=== PATIENT | female | born 1950 | race Caucasian/White ===

== ENCOUNTER → 2018-07-04 08:37 | Outpatient (CLI) | payer MEDICARE, SELFPAY ==
[2018-07-04 10:34] LABS: Thyroid Stimulating Hormone 0.97 uIU/mL (0.47-4.68)
== END ==
PROVIDERS: Family Provider Internal Medicine; PCP Internal Medicine; Visit Provider Nurse Practitioner
DX: C73 Malignant neoplasm of thyroid gland (principal)
CPT/HCPCS: 36415; 84443

== ENCOUNTER → 2018-12-19 11:51 | Outpatient (CLI) | payer MEDICARE, SELFPAY ==
[2018-12-19 13:11] LABS: Free T4, Direct Thyroxine 1.69 ng/dL (0.78-2.19)
[2018-12-19 13:25] LABS: Thyroid Stimulating Hormone 0.08 uIU/mL (0.47-4.68)
[2018-12-20 15:58] LABS: Triiodothyronine T3 Total 107 ng/dL (76-181)
== END ==
PROVIDERS: PCP Internal Medicine; Visit Provider Internal Medicine
DX: E03.9 Hypothyroidism, unspecified (principal)
CPT/HCPCS: 36415; 84439; 84443; 84480

== ENCOUNTER → 2019-02-02 12:15 | Outpatient (CLI) | payer MEDICARE, SELFPAY ==
--- NOTE | 2019-02-02 | DI.MG.S_ITS ---
BILATERAL DIGITAL SCREENING MAMMOGRAM 3D/2D WITH CAD: 02/02/2019 Comparison is made to exams dated: 10/01/2014 mammogram and 05/06/2012 mammogram - [facility]. There are scattered fibroglandular elements in both breasts. Current study was also evaluated with a Computer Aided Detection (CAD) system. No significant masses, calcifications, or other findings are seen in either breast. There has been no significant interval change. IMPRESSION: NEGATIVE There is no mammographic evidence of malignancy. A 1 year screening mammogram is recommended. This exam was interpreted at Station ID: [id number]. NOTE: For mammograms, a report in lay terms will be sent to the patient. Approximately 15% of breast malignancies will not be visualized mammographically. In the management of a palpable breast mass, a negative mammogram must not discourage biopsy of a clinically suspicious lesion. Electronically Signed By: Tanya ortega/che:02/02/2019 16:26:04 letter sent: Normal Exam ACR BI-RADS Category 1: Negative 3341F
== END ==
PROVIDERS: PCP Internal Medicine; Visit Provider Internal Medicine
DX: Z12.31 Encounter for screening mammogram for malignant neoplasm of breast (principal)
CPT/HCPCS: 77063; 77067

== ENCOUNTER → 2019-11-04 09:01 | Outpatient (CLI) | payer MEDICARE, SELFPAY ==
[2019-11-04 11:18] LABS: Free T4, Direct Thyroxine 2.02 ng/dL (0.78-2.19)
[2019-11-04 11:32] LABS: Thyroid Stimulating Hormone 0.19 uIU/mL (0.47-4.68)
[2019-11-05 07:44] LABS: Triiodothyronine T3 Total 129 ng/dL (71-180)
== END ==
PROVIDERS: PCP Internal Medicine; Referring Provider Internal Medicine; Visit Provider Internal Medicine
DX: E03.9 Hypothyroidism, unspecified (principal)
CPT/HCPCS: 36415; 84439; 84443; 84480

== ENCOUNTER 2020-10-17 18:38 | Emergency (ER) | payer MEDICARE, SELFPAY ==
[2020-10-17 18:46] VITALS: BP 185/91; PULSE 91; RESP 20; TEMP 37.4; O2SAT 96
--- NOTE | 2020-10-17 18:49 | ED_ITS ---
HPI - Nausea/Vomiting/Diarrhea General Chief complaint: Nausea/Vomiting/Diarrhea Stated complaint: SPIT UP A BUNCH OF BLOOD RT LEG NUMBNESS Time Seen by Provider: 10/17/20 18:49 Source: patient Mode of arrival: Ambulatory Limitations: no limitations History of Present Illness HPI Narrative: 70-year-old female nonsmoker with history of thyroid and uterine cancer (no ongoing treatment, [facility]) presents with family in the chief complaint of dry and hacking cough over the past few days and the production of some blood-tinged sputum today. She is not dizzy nor weak or lightheaded. She denies any fever or chills. She does not take any blood thinners. She denies any history of blood clot, recent travel. Additionally, patient complains of some pain in her right lower back with extension into her right leg and episodes of tingling. She denies any traumatic injury, use of IV drugs or fever. She has no midline pain. She denies any loss of bowel or bladder control nor any footdrop. Related Data Previous Rx's Medication Instructions Recorded cyclobenzaprine 10 mg PO TID PRN #14 tab 10/17/20 ketorolac 10 mg PO Q6H PRN #14 tab 10/17/20 prednisone 20 mg PO DAILY #5 tab 10/17/20 Review of Systems Constitutional Constitutional: Denies chills, Denies fatigue, Denies fever(s), Denies frequent falls, Denies lethargy and Denies weakness Eyes Eyes: Denies change in vision, Denies eye discharge, Denies irritation and Denies loss of vision ENT Ears, Nose, Mouth, and Throat: Denies change in voice, Denies dizziness, Denies neck pain, Denies sore throat and Denies throat swelling Cardiovascular Cardiovascular: Denies chest pain, Denies irregular heart rhythm, Denies lightheadedness, Denies palpitations, Denies dyspnea, Denies dyspnea on exertion and Denies orthopnea Respiratory Respiratory: Reports cough, Reports hemoptysis, Denies dyspnea, Denies dyspnea on exertion and Denies wheezing Gastrointestinal Gastrointestinal: Denies abdominal pain, Denies change in bowel habits, Denies diarrhea, Denies nausea and Denies vomiting Musculoskeletal Musculoskeletal: Reports back pain, Denies neck pain, Denies numbness and Reports radiating pain into limb Integumentary/Breasts Skin/Breast: Denies pruritus, Denies erythema, Denies rash and Denies wounds Neurologic Neurologic: Denies behavioral changes, Denies confusion, Denies dizziness, Denies frequent falls, Denies loss of vision, Denies numbness and Denies weakness Psychiatric Psychiatric: Denies anxiety, Denies behavioral changes, Denies confusion, Denies depression, Denies homicidal ideation and Denies suicidal ideation Endocrine Endocrine: Denies fatigue, Denies flushing and Denies palpitations Hematologic/Lymphatic Hematologic/Lymphatic: Denies easy bruising Allergic/Immunologic Allergic/Immunologic: Denies urticaria, Denies throat swelling and Denies wheezing Patient History Surgical History History of thyroidectomy Status post dilation and curettage (08/08/15) Status post hysterectomy (09/08/15) Status post surgery (08/08/15) Exam Narrative Exam Narrative: GENERAL: [70] year old patient appears stated age. Well- nourished, well-developed patient, in mild distress. HEAD: Atraumatic. Normocephalic. EYES: Pupils equal round and reactive. Extraocular motions intact. No scleral icterus. No injection or drainage. ENT: Nose without bleeding, purulent drainage. Throat without erythema, tonsillar hypertrophy or exudate. Airway patent. NECK: Trachea midline. Non tender CARDIOVASCULAR: Regular rate and rhythm without murmurs, gallops, or rubs. RESPIRATORY: Clear to auscultation. Breath sounds equal bilaterally. No wheezes, rales, or rhonchi. GASTROINTESTINAL: Abdomen soft, non-tender, nondistended. EXTREMITIES: No edema or joint tenderness. BACK: mason tender restoration labor but free of any obvious external abnormalities. Patient exam notes decreased range of motion and muscle spasm, but no CVA tenderness, or vertebral point tenderness. There are no symptoms of cauda equina such as saddle anesthesia, and decreased reflexes, decreased sensation or strength. NEURO: AOx3. SKIN: No rash or erythema of visible areas Initial Vital Signs Initial Vital Signs: Vital Signs Temperature 99.4 F 10/17/20 18:46 Pulse Rate 91 H 10/17/20 18:46 Respiratory Rate 20 10/17/20 18:46 Blood Pressure 185/91 H 10/17/20 18:46 Pulse Oximetry 96 10/17/20 18:46 Course Orders Ordered: ED Orders 10/17/20 19:00 XR chest 2V Stat 10/17/20 19:30 Complete Blood Count AUTO DIFF Stat Comprehensive Metabolic Panel Stat D Dimer Stat Partial Thromboplastin Time Stat Procalcitonin Stat Prothrombin Time INR Stat Troponin & CK Cardiac Panel Stat 10/17/20 20:11 CT angio chest PE protocol Stat Discontinued Medications Cyclobenzaprine HCl (Cyclobenzaprine 10 Mg Prepack) 1 bottle MISC SEEINSTR ONE Stop: 10/17/20 21:14 Last Admin: 10/17/20 21:22 Dose: 1 bottle Documented by: MINA Prednisone (Prednisone 20 Mg Tablet) 40 mg PO NOW ONE Stop: 10/17/20 21:14 Last Admin: 10/17/20 21:22 Dose: 40 mg Documented by: MINA Vital Signs Vital signs: Vital Signs - 8 hr 10/17/20 20:53 Pulse Rate 68 Respiratory Rate 16 Blood Pressure 168/76 H Pulse Oximetry 97 MDM - Nausea/Vomiting/Diarrhea Lab Data Result diagrams: 10/17/20 19:30 10/17/20 19:30 Labs: Lab Results 10/17/20 10/17/20 10/17/20 Range/Units 19:30 19:30 19:30 WBC 5.8 (4.5-11.0) X10^3/uL RBC 4.52 (4.0-5.2) X10^6/uL Hgb 13.0 (12.0-16.0) g/dL Hct 38.8 (36-46) % MCV 85.7 (80-100) fL MCH 28.8 (26-34) PG MCHC 33.6 (30-36) % RDW 13.3 (11.6-14.8) % Plt Count 244 (150-400) X10^3/uL Neut % (Auto) 52.9 (50-75) % Lymph % (Auto) 36.3 (25-40) % York % (Auto) 7.7 (3-14) % Eos % (Auto) 2.1 (2-4) % Baso % (Auto) 1.0 (0-2) % Neut # (Auto) 3100 (4347-8655) /uL Lymph # (Auto) 2100 (7366-4223) /uL York # (Auto) 400 (0-900) /uL Eos # (Auto) 100 (0-450) /uL Baso # (Auto) 100 (0-100) /uL PT 12.2 (10.1-12.7) SECONDS INR 1.1 (0.9-1.3) APTT 33 (26.4-36.2) SECONDS D-Dimer (<230) ng/mL Sodium 142 (137-145) mmol/L Potassium 4.0 (3.4-5.1) mmol/L Chloride 106 (98-107) mmol/L Carbon Dioxide 27 (22-32) mmol/L BUN 18 H (7-17) mg/dL Creatinine 0.92 (0.52-1.04) mg/dL Estimated GFR > 60.0 (>60) mL/min BUN/Creatinine Ratio 19.6 (6-22) Glucose 104 (80-110) mg/dL Calcium 8.8 (8.4-10.2) mg/dL Total Bilirubin 0.3 (0.2-1.3) mg/dL AST 31 (14-36) IU/L ALT 31 (<35) IU/L Alkaline Phosphatase 80 (38-126) U/L Total Creatine Kinase 452 H (30-135) U/L CK-MB (CK-2) 3.00 H (<2.37) ng/mL CK-MB (CK-2) Rel Index 0.7 L (1.5-5.0) % Troponin I < 0.012 (0.01-0.034) ng/mL Total Protein 8.1 (6.3-8.2) g/dL Albumin 4.6 (3.5-5.0) g/dL Globulin 3.5 (1.7-4.1) g/dL Albumin/Globulin Ratio 1.3 (1.0-2.8) Procalcitonin (<0.5) ng/mL 10/17/20 10/17/20 Range/Units 19:30 19:30 WBC (4.5-11.0) X10^3/uL RBC (4.0-5.2) X10^6/uL Hgb (12.0-16.0) g/dL Hct (36-46) % MCV (80-100) fL MCH (26-34) PG MCHC (30-36) % RDW (11.6-14.8) % Plt Count (150-400) X10^3/uL Neut % (Auto) (50-75) % Lymph % (Auto) (25-40) % York % (Auto) (3-14) % Eos % (Auto) (2-4) % Baso % (Auto) (0-2) % Neut # (Auto) (3486-9326) /uL Lymph # (Auto) (6855-7412) /uL York # (Auto) (0-900) /uL Eos # (Auto) (0-450) /uL Baso # (Auto) (0-100) /uL PT (10.1-12.7) SECONDS INR (0.9-1.3) APTT (26.4-36.2) SECONDS D-Dimer 647 H (<230) ng/mL Sodium (137-145) mmol/L Potassium (3.4-5.1) mmol/L Chloride (98-107) mmol/L Carbon Dioxide (22-32) mmol/L BUN (7-17) mg/dL Creatinine (0.52-1.04) mg/dL Estimated GFR (>60) mL/min BUN/Creatinine Ratio (6-22) Glucose (80-110) mg/dL Calcium (8.4-10.2) mg/dL Total Bilirubin (0.2-1.3) mg/dL AST (14-36) IU/L ALT (<35) IU/L Alkaline Phosphatase (38-126) U/L Total Creatine Kinase (30-135) U/L CK-MB (CK-2) (<2.37) ng/mL CK-MB (CK-2) Rel Index (1.5-5.0) % Troponin I (0.01-0.034) ng/mL Total Protein (6.3-8.2) g/dL Albumin (3.5-5.0) g/dL Globulin (1.7-4.1) g/dL Albumin/Globulin Ratio (1.0-2.8) Procalcitonin 0.05 (<0.5) ng/mL Imaging Data CT scan - chest: Radiologist's Impression: [address] [id number] Scan ReportSigned Patient: Saranya Fleming [facility]#: [id number]: 1950cct:[id number]/Sex: 70 / FDate of Service: 10/17/20Loc: EDAccession Number: [id number] Procedure: CT angio chest PE protocol Ordering Provider: Magan Miller D.O. PROCEDURE: CT ANGIO CHEST PE PROTOCOL INDICATIONS: cough, hemoptysis TECHNIQUE: After the administration of intravenous contrast, 2 mm thick sections acquired from the pulmonary apices to the posterior costophrenic angles. 3-dimensional maximum intensity projection (MIP) coronal and sagittal reformats were then acquired through the thorax. For radiation dose reduction, the following was used: automated exposure control, adjustment of mA and/or kV according to patient size. COMPARISON: None. FINDINGS: Image quality: Excellent. Pulmonary arteries: Pulmonary arteries are normal in size, and demonstrate no intraluminal filling defects to suggest central pulmonary embolism. Lungs and pleura: No evidence pneumonia or edema. There are multiple bilateral basilar predominant pulmonary nodules, largest of which is in the right middle lobe anteriorly measuring 10 mm diameter. No pleural effusions or pneumothorax. Central and peripheral airways are patent. Mediastinum: Heart size is normal, without pericardial effusion. 17 mm short axis left adenopathy is present. Thoracic aorta is normal in caliber and enhancement. Esophagus is normal in caliber, without hiatal hernia. Bones and chest wall: No suspicious bony lesions. Ribs and thoracic spine appear intact throughout. Thyroid gland is surgically absent. No axillary or supraclavicular adenopathy. Abdomen: Visualized portions of the upper abdomen demonstrate an 18 mm diameter right adrenal nodule which demonstrates postcontrast Hounsfield units 20. IMPRESSION: 1. No pulmonary embolus. 2. Multiple bilateral pulmonary nodules, in conjunction with left hilar adenopathy, consistent with metastatic disease. 3. Indeterminate right adrenal nodule. This could be further assessed with adrenal protocol MRI, if clinically indicated. Dictated by: Hiro Cee M.D. on 10/17/2020 at 21:00 Approved by: Hiro Cee M.D. on 10/17/2020 at 21:02 MDM Narrative Medical decision making narrative: Multiple etiologies for patient's symptoms considered including: [Pneumonia versus pulmonary embolism versus lung cancer versus other. Multiple etiologies of back pain considered including; Epidural abscess, cauda equina, mass occupying lesion, and other considered] Patient's symptoms improved over duration of stay with above-stated therapies. Findings and discharge diagnosis discussed with patient/family followed by verbalization of understanding Return precautions discussed with patient/family whom verbalize understanding. Discharge Plan Departure Patient Disposition: Home Clinical Impression: Lumbar radiculopathy, right Instructions: DI for Lumbar Radiculopathy Activity Restrictions/Additional Instructions: *You have been diagnosed with [right-sided lumbar radiculopathy and minor cough with bloody sputum. Labs are very reassuring and there is no evidence of pneumonia or blood clot. Multiple pulmonary nodules were noted, which could be consistent with possible lung cancer. *What to do: *Take medications as directed *Follow up with your primary care provider in 2-3 days, call for an appointment. Let them know you were seen in the Emergency Department and that we ask that you be seen in follow up. They can help you get a referral to the [facility] for a futher workup to evaluate those nodules. *Return to ER if you should have any new, worsening or concerning symptoms Prescriptions: New cyclobenzaprine 10 mg tablet 10 mg PO TID PRN (Reason: muscle spasm) Qty: 14 RF: 0 prednisone 20 mg tablet 20 mg PO DAILY Qty: 5 RF: 0 ketorolac 10 mg tablet 10 mg PO Q6H PRN (Reason: pain) Qty: 14 RF: 0 Referrals: Sandor Fontenot MD [Primary Care Provider] -
--- NOTE | 2020-10-17 19:00 | DI.RAD.S_ITS ---
PROCEDURE: XR CHEST 2V INDICATIONS: cough, hemoptysis TECHNIQUE: 2 views of the chest were acquired. COMPARISON: None. FINDINGS: Surgical changes and devices: None. Lungs and pleura: Lungs are clear. No pleural effusions or pneumothorax. Mediastinum: Mediastinal contours are normal. Heart size is normal. Bones and chest wall: No suspicious bony abnormalities. Soft tissues appear unremarkable. IMPRESSION: No acute process. Dictated by: Hiro Cee M.D. on 10/17/2020 at 19:16 Approved by: Hiro Cee M.D. on 10/17/2020 at 19:17
[2020-10-17 19:37] LABS: Add Manual Diff / Slide Review NO; Basophils Absolute Auto 100 /uL (0-100); Eosinophils Absolute Auto 100 /uL (0-450); Eosinophils Percent Auto 2.1 % (2-4); Hematocrit 38.8 % (36-46); Lymphocytes Absolute Auto 2100 /uL (1100-4500); Lymphocytes Percent Auto 36.3 % (25-40); Mean Corpuscular HGB Conc 33.6 % (30-36); Mean Corpuscular Hemoglobin 28.8 PG (26-34); Mean Corpuscular Volume 85.7 fL (80-100); Monocytes Absolute Auto 400 /uL (0-900); Monocytes Percent Auto 7.7 % (3-14); Neutrophils Absolute Auto 3100 /uL (1500-7000); Neutrophils Percent Auto 52.9 % (50-75); Platelet Count 244 X10^3/uL (150-400); Red Blood Cell Count 4.52 X10^6/uL (4.0-5.2); Red Cell Distribution Width 13.3 % (11.6-14.8); White Blood Cell Count 5.8 X10^3/uL (4.5-11.0)
[2020-10-17 19:48] LABS: INR 1.1 (0.9-1.3); Prothrombin Time 12.2 SECONDS (10.1-12.7)
[2020-10-17 19:51] LABS: PTT Partial Thromboplastin Tim 33 SECONDS (26.4-36.2)
[2020-10-17 20:02] LABS: D Dimer 647 ng/mL (<230)
--- NOTE | 2020-10-17 20:11 | DI.CT.S_ITS ---
PROCEDURE: CT ANGIO CHEST PE PROTOCOL INDICATIONS: cough, hemoptysis TECHNIQUE: After the administration of intravenous contrast, 2 mm thick sections acquired from the pulmonary apices to the posterior costophrenic angles. 3-dimensional maximum intensity projection (MIP) coronal and sagittal reformats were then acquired through the thorax. For radiation dose reduction, the following was used: automated exposure control, adjustment of mA and/or kV according to patient size. COMPARISON: None. FINDINGS: Image quality: Excellent. Pulmonary arteries: Pulmonary arteries are normal in size, and demonstrate no intraluminal filling defects to suggest central pulmonary embolism. Lungs and pleura: No evidence pneumonia or edema. There are multiple bilateral basilar predominant pulmonary nodules, largest of which is in the right middle lobe anteriorly measuring 10 mm diameter. No pleural effusions or pneumothorax. Central and peripheral airways are patent. Mediastinum: Heart size is normal, without pericardial effusion. 17 mm short axis left adenopathy is present. Thoracic aorta is normal in caliber and enhancement. Esophagus is normal in caliber, without hiatal hernia. Bones and chest wall: No suspicious bony lesions. Ribs and thoracic spine appear intact throughout. Thyroid gland is surgically absent. No axillary or supraclavicular adenopathy. Abdomen: Visualized portions of the upper abdomen demonstrate an 18 mm diameter right adrenal nodule which demonstrates postcontrast Hounsfield units 20. IMPRESSION: 1. No pulmonary embolus. 2. Multiple bilateral pulmonary nodules, in conjunction with left hilar adenopathy, consistent with metastatic disease. 3. Indeterminate right adrenal nodule. This could be further assessed with adrenal protocol MRI, if clinically indicated. Dictated by: Hiro Cee M.D. on 10/17/2020 at 21:00 Approved by: Hiro Cee M.D. on 10/17/2020 at 21:02
[2020-10-17 20:32] LABS: Alanine Aminotransferase 31 IU/L (<35); Albumin 4.6 g/dL (3.5-5.0); Albumin Globulin Ratio 1.3 (1.0-2.8); Alkaline Phosphatase 80 U/L (38-126); Aspartate Aminotransferase 31 IU/L (14-36); BUN Creatinine Ratio 19.6 (6-22); Bilirubin Total 0.3 mg/dL (0.2-1.3); Blood Urea Nitrogen 18 mg/dL (7-17); Calcium 8.8 mg/dL (8.4-10.2); Carbon Dioxide 27 mmol/L (22-32); Chloride 106 mmol/L (98-107); Creatine Kinase 452 U/L (30-135); Estimated Glomerular Filt Rate > 60.0 mL/min (>60); Globulin 3.5 g/dL (1.7-4.1); Glucose 104 mg/dL (80-110); HEMOLYSIS < 15 (0-50); Sodium 142 mmol/L (137-145); Total Protein 8.1 g/dL (6.3-8.2)
[2020-10-17 20:45] LABS: Troponin I < 0.012 ng/mL (0.01-0.034)
[2020-10-17 20:48] LABS: CKMB % Relative Index 0.7 % (1.5-5.0)
[2020-10-17 20:50] LABS: Procalcitonin 0.05 ng/mL (<0.5)
[2020-10-17 20:53] VITALS: BP 168/76; PULSE 68; RESP 16; O2SAT 97
[2020-10-17] MEDS: predniSONE 20 MG TABLET 40 MG PO (21:22)
[2020-10-17] MEDS: CYCLOBENZAPRINE 10 MG PREPACK 1 BOTTLE MISC (21:22)
== END 2020-10-17 21:33 | disposition home or self-care (01) ==
PROVIDERS: Emergency Provider Emergency Medicine; PCP Internal Medicine
DX: M54.16 Radiculopathy, lumbar region (principal); R04.2 Hemoptysis
CPT/HCPCS: 36415; 71046; 71275; 80053; 82550; 82553; 84145; 84484; 85025; 85379; 85610; 85730; 99284

== ENCOUNTER → 2020-12-05 14:16 | Outpatient (CLI) | payer MEDICARE, SELFPAY ==
[2020-12-05 15:24] LABS: COVID19 -Nasal RAPID Negative (Negative)
== END ==
PROVIDERS: PCP Internal Medicine; Visit Provider Physician Assistant
DX: Z01.812 Encounter for preprocedural laboratory examination (principal); Z20.822 Contact with and (suspected) exposure to COVID-19
CPT/HCPCS: 87635; C9803

== ENCOUNTER 2020-12-07 08:10 | Day surgery (SDC) | payer MEDICARE, SELFPAY ==
--- NOTE | 2020-12-07 | PATH_ITS ---
[facility] Accession Number: [id number] . 01 Material submitted: . PART A: colon - ASCENDING COLON POLYP PART B: colon - ASCENDING COLON POLYP 20MM . 02 Diagnosis: A. Ascending Colon Polyp, Biopsy: Tubular adenoma. . B. Ascending Colon Polyp, 20 mm, Biopsy: Fragments of tubulovillous adenoma with foci of high-grade dysplasia. Negative for malignancy. MRV 12/12/2020 1113 Local . 02 Electronically signed: . Antonio Henson MD, PhD, Pathologist NPI- [id number] . 01 Gross description: . Part A: ASCENDING COLON POLYP: Received in formalin are 2 fragment(s) of garcia, soft tissue measuring 0.4 x 0.2 x 0.2 cm to 0.2 x 0.2 x 0.1 cm submitted entirely in 1 cassette(s) Part B: ASCENDING COLON POLYP 20MM: Received in formalin are multiple fragment(s) of garcia, soft tissue measuring 3.3 x .0 x 1.0 cm in aggregate submitted entirely in 1 cassette(s) /[place] 12/08/2020 0912 Local . 02 Pathologist provided ICD-10: D12.2 . 02 CPT . 965099, [id number] Performed at: 01 [facility] [address], [place], [place] [id number] MD Jorge Garcia MD Phone: [phone] Performed at: 02 [facility] [address] [place], [place] [id number] MD Prachi Freitas MD Phone: [phone]
[2020-12-07 08:34] VITALS: BP 132/76; PULSE 89; RESP 18; TEMP 37.2; O2SAT 97; BMI 33.5
[2020-12-07] MEDS: SODIUM CHLORIDE 0.9% 1,000 ML 84 ML IV (08:40)
--- NOTE | 2020-12-07 09:18 | PM.HP.1 ---
History of Present Illness History of Present Illness Date Patient Seen: 12/07/20 Chief complaint: SCREENING COLONOSCOPY W/POSS BX Narrative: Positive Cologuard test with family history of polyps in her brother. Patient History Medical History (Updated 12/06/20 @ 14:37 by Margoth Fontenot RN) Thyroid cancer Uterine cancer Surgical History History of thyroidectomy Status post dilation and curettage (08/08/15) Status post hysterectomy (09/08/15) Status post surgery (08/08/15) Family & Social History Social History: household members none Tobacco & Substance use: Smoking Status Never smoker alcohol intake never Substance Use Type does not use Meds Home Medications and Allergies Home Medications Medication Instructions Recorded Confirmed Type aspirin 81 mg PO DAILY 12/07/20 12/07/20 History calcitriol 0.25 mcg PO DAILY 12/07/20 12/07/20 History levothyroxine 175 mcg PO DAILY 12/07/20 12/07/20 History losartan 100 mg PO DAILY 12/07/20 12/07/20 History Allergies Allergy/AdvReac Type Severity Reaction Status Date / Time No Known Drug Allergies Allergy Verified 12/07/20 08:43 Exam Vital Signs (past 8 hours): - 12/07/20 08:34 Temperature 98.9 F Pulse Rate 89 Respiratory Rate 18 Blood Pressure 132/76 Pulse Oximetry 97 Oxygen Delivery Method Room Air Narrative Exam Narrative: Oropharynx free of lesions Chest clear to auscultation percussion Cardiac exam reveals no S3 or murmur Assessment & Plan Assessment & Plan narrative: Positive Cologuard test and family history of colon polyps need for screening colonoscopy. Risks, benefits, alternatives have been explained.
--- NOTE | 2020-12-07 09:19 | P.OP.ENDO_ITS ---
Operative Date/Time/Diagnoses Date of procedure: 12/07/20 Pre-op diagnosis: See indication and findings Procedure & Clinicians Study performed: Colonoscopy Same procedure as scheduled: Yes Indications: Positive Cologuard and family history of colon polyps in a first- degree relative Surgeon: Edy Levi Procedure Notes Procedure in detail: After informed consent was obtained the patient was placed in left lateral decubitus position. The video colonoscope was introduced the rectum slowly advanced cecum. Preparation was good. On slow withdrawal mucosa was carefully examined. The scope was removed. The patient tolerated procedure well. Blood loss none Complications none Sedation Total sedation time 55 minutes Versed 9 mg fentanyl 150 micro g IV titration Findings 1. 6 mm polyp in the proximal ascending colon Jumbo biopsy removed completely 2. Gigantic semi pedunculated 20 mm polyp in the distal ascending colon. The base of the stalk was injected 2 cc of epinephrine and using a large snare this was removed in 1 pass. Unfortunately, this was unable to be removed through in the left colon due to tortuosity. A good deal of time was spent trying to snare it or use a [place] Net. Eventually after several cuts through the polyp using electric cautery fragments were retrieved. It is possible that not all fragments were retrieved. 3. Extensive sigmoid diverticulosis 4. Otherwise negative colonoscopy to cecum. We will merely await the pathology on this polyp but she will most likely need follow-up colonoscopy within a year.
[2020-12-07] MEDS: EPINEPHrine 1 MG/10 ML SYRINGE IV (09:45)
[2020-12-07] MEDS: MIDAZOLAM 5 MG/5 ML VIAL IV (10:04)
[2020-12-07] MEDS: fentaNYL 250 MCG/5 ML INJ IV (10:07)
[2020-12-07 10:28] VITALS: BP 125/74; PULSE 70; RESP 18; TEMP 36.3; O2SAT 98
--- NOTE | 2020-12-07 10:28 | SUR.PHASEI ---
Pt arrived to PACU after colonoscopy with sedation. Reekylee from [facility].
[2020-12-07 10:33] VITALS: BP 124/64; PULSE 69; RESP 20; O2SAT 97
[2020-12-07 10:38] VITALS: BP 118/74; PULSE 78; RESP 20
[2020-12-07 10:45] VITALS: BP 129/79; PULSE 72; RESP 16; TEMP 36.4; O2SAT 95
[2020-12-07 11:02] VITALS: BP 123/65; PULSE 79; RESP 16; TEMP 36.2; O2SAT 97
== END 2020-12-07 11:04 | disposition home or self-care (01) ==
PROVIDERS: PCP Physician Assistant; Referring Provider Physician Assistant; Visit Provider Internal Medicine Gastroenterology
PROC: 0DJD8ZZ Inspection of Lower Intestinal Tract, Via Natural or Artificial Opening Endoscopic (ICD-10-PCS; CPT 45378; principal; 2020-12-07 09:30)
DX: R19.5 Other fecal abnormalities (principal); K57.30 Diverticulosis of large intestine without perforation or abscess without bleeding; D12.2 Benign neoplasm of ascending colon
CPT/HCPCS: 45385; 45380; J0171; J2250; J3010

== ENCOUNTER 2020-12-15 15:25 | Emergency (ER) | payer MEDICARE, SELFPAY ==
[2020-12-15] VITALS (9 sets, daily range): BP systolic 120–142; BP diastolic 62–74; PULSE 77–98; RESP 15; TEMP 37.1; O2SAT 96–98; BMI 33.6
[2020-12-15 16:16] LABS: Alanine Aminotransferase 25 IU/L (<35); Albumin 4.4 g/dL (3.5-5.0); Albumin Globulin Ratio 1.3 (1.0-2.8); Alkaline Phosphatase 63 U/L (38-126); Aspartate Aminotransferase 26 IU/L (14-36); BUN Creatinine Ratio 27.3 (6-22); Bilirubin Total 0.3 mg/dL (0.2-1.3); Blood Urea Nitrogen 24 mg/dL (7-17); Calcium 9.2 mg/dL (8.4-10.2); Carbon Dioxide 25 mmol/L (22-32); Chloride 104 mmol/L (98-107); Estimated Glomerular Filt Rate > 60.0 mL/min (>60); Globulin 3.4 g/dL (1.7-4.1); Glucose 103 mg/dL (80-110); HEMOLYSIS < 15 (0-50); Potassium 4.1 mmol/L (3.4-5.1); Sodium 138 mmol/L (137-145); Total Protein 7.8 g/dL (6.3-8.2)
[2020-12-15 16:27] LABS: Add Manual Diff / Slide Review NO; Basophils Absolute Auto 0 /uL (0-100); Basophils Percent Auto 0.4 % (0-2); Eosinophils Absolute Auto 0 /uL (0-450); Eosinophils Percent Auto 0.7 % (2-4); Hemoglobin 12.1 g/dL (12.0-16.0); Lymphocytes Absolute Auto 2000 /uL (1100-4500); Lymphocytes Percent Auto 29.2 % (25-40); Mean Corpuscular HGB Conc 33.5 % (30-36); Mean Corpuscular Hemoglobin 28.8 PG (26-34); Mean Corpuscular Volume 85.9 fL (80-100); Monocytes Absolute Auto 500 /uL (0-900); Monocytes Percent Auto 6.7 % (3-14); Neutrophils Absolute Auto 4300 /uL (1500-7000); Platelet Count 254 X10^3/uL (150-400); Red Blood Cell Count 4.19 X10^6/uL (4.0-5.2); Red Cell Distribution Width 13.3 % (11.6-14.8); White Blood Cell Count 6.8 X10^3/uL (4.5-11.0)
--- NOTE | 2020-12-15 16:42 | ED.GIBLEED ---
HPI - GI Bleed General Chief complaint: GI Bleed Stated complaint: Colonoscopy Last Week, Bleeding Time Seen by Provider: 12/15/20 16:42 Source: patient Mode of arrival: Ambulatory Limitations: no limitations History of Present Illness HPI Narrative: This is a pleasant 70-year-old female who comes with complaint of painless rectal bleeding that began yesterday. Patient states she noticed more yesterday and less today but with each bowel movement. She denies any fevers or chills. She denies any abdominal pain. She denies any nausea or vomiting. She denies any chest pain or shortness of breath. No dizziness or lightheadedness. She denies any urinary symptoms. Patient states that she did have a colonoscopy a week ago for screening. She was told that she did have at least 2 polyps removed. Patient states she does have a history of thyroid cancer with thyroidectomy and part of her parathyroids removed, she takes medication for her thyroid as well as calcium and a antihypertensive. Patient states she has also had hysterectomy for uterine cancer in the past. Patient states her colonoscopy was performed here through Gastroenterology she has not had the final reports. Related Data Home Medications Medication Instructions Recorded Confirmed aspirin 81 mg PO DAILY 12/07/20 12/07/20 calcitriol 0.25 mcg PO DAILY 12/07/20 12/07/20 levothyroxine 175 mcg PO DAILY 12/07/20 12/07/20 losartan 100 mg PO DAILY 12/07/20 12/07/20 Allergies Allergy/AdvReac Type Severity Reaction Status Date / Time No Known Drug Allergies Allergy Verified 12/15/20 15:38 Review of Systems Review of Systems ROS Unobtainable: All systems reviewed & are unremarkable except as noted in HPI and below Patient History Medical History Thyroid cancer Uterine cancer Surgical History History of thyroidectomy Status post dilation and curettage (08/08/15) Status post hysterectomy (09/08/15) Status post surgery (08/08/15) Social History household members: none Smoking Status: Never smoker alcohol intake: never Smoking Status: Never smoker alcohol intake frequency: holidays/special occasions only Substance Use Type: does not use Exam Narrative Exam Narrative: GENERAL: Alert and oriented x three, well-nourished female in mild distress. HEENT: Head normocephalic, atraumatic, EOMI, pupils reactive, face symmetric, moist mucous membranes NECK: Supple, full range of motion CARDIOVASCULAR: Regular rate and rhythm without murmurs, rubs or gallops. RESPIRATORY: Breath sounds equal bilaterally, no wheezes rales or rhonchi. ABDOMEN: Soft, nontender. Normoactive bowel sounds all 4 quadrants. No guarding or rebound, rigidity, no mass, patient has a small hemorrhoid on exam, there is a small amount of bright red blood mixed in with brown stool which is stool occult positive. : No CVA tenderness EXTREMITIES: Normal range of motion, no clubbing or edema. Neurovascularly intact NEUROLOGICAL: Cranial nerves II through XII grossly intact. Moving all extremities SKIN: Warm, dry, no petechiae, no rashes or lesions. Initial Vital Signs Initial Vital Signs: Vital Signs Temperature 98.7 F 12/15/20 15:35 Pulse Rate 98 H 12/15/20 15:35 Respiratory Rate 15 12/15/20 15:35 Blood Pressure 128/74 12/15/20 15:35 Pulse Oximetry 97 12/15/20 15:35 Course Orders Ordered: ED Orders 12/15/20 15:48 Complete Blood Count AUTO DIFF Stat Comprehensive Metabolic Panel Stat Type and Screen Stat 12/15/20 16:51 XR acute abdomen series Stat Reevaluation(s) Reevaluation #1: Patient and I discussed findings today. She has not had any additional episodes here in the department. Patient has been feeling well her hemoglobin is stable with negative orthostatics and normal vitals. Discussed with patient likely has bleeding from her polypectomy. Time: 18:19 Consultations Consultation #1: Dr. rAcher from Gastroenterology covering for patient's GI. Suspects patient was having bleeding colon polyp which I agree. Plan to have her hold her aspirin 81 mg, and follow-up tomorrow via phone. The office will reach out to the patient. If patient continues to have bleeding but is asymptomatic will likely take her back for colonoscopy as outpatient. If she is continued to have bleeding but feeling worse patient is to return here and we will recontact GI. Time: 17:10 Vital Signs Vital signs: Vital Signs - 8 hr 12/15/20 15:35 12/15/20 16:36 12/15/20 16:55 Temperature 98.7 F Pulse Rate 98 H 86 80 Pulse Rate [Orthostatic Lying] Pulse Rate [Orthostatic Sitting] Pulse Rate [Orthostatic Standing] Respiratory Rate 15 Blood Pressure 128/74 140/65 Blood Pressure [Orthostatic Lying] Blood Pressure [Orthostatic Sitting] Blood Pressure [Orthostatic Standing] Pulse Oximetry 97 97 98 12/15/20 16:56 12/15/20 16:57 12/15/20 16:58 Temperature Pulse Rate 83 89 Pulse Rate [Orthostatic Lying] 79 Pulse Rate [Orthostatic Sitting] 81 Pulse Rate [Orthostatic Standing] 88 Respiratory Rate Blood Pressure 120/62 135/73 Blood Pressure [Orthostatic Lying] 140/65 Blood Pressure [Orthostatic Sitting] 120/62 Blood Pressure [Orthostatic Standing] 135/73 Pulse Oximetry 97 98 12/15/20 17:00 12/15/20 17:30 12/15/20 18:00 Temperature Pulse Rate 79 77 77 Pulse Rate [Orthostatic Lying] Pulse Rate [Orthostatic Sitting] Pulse Rate [Orthostatic Standing] Respiratory Rate Blood Pressure 131/63 129/65 142/67 H Blood Pressure [Orthostatic Lying] Blood Pressure [Orthostatic Sitting] Blood Pressure [Orthostatic Standing] Pulse Oximetry 97 96 96 MDM - GI Bleed Lab Data Attestation: I reviewed the patient's lab results. Result diagrams: 12/15/20 15:48 12/15/20 15:48 Labs: Lab Results 12/15/20 12/15/20 12/15/20 Range/Units 15:48 15:48 15:48 WBC 6.8 (4.5-11.0) X10^3/uL RBC 4.19 (4.0-5.2) X10^6/uL Hgb 12.1 (12.0-16.0) g/dL Hct 36.0 (36-46) % MCV 85.9 (80-100) fL MCH 28.8 (26-34) PG MCHC 33.5 (30-36) % RDW 13.3 (11.6-14.8) % Plt Count 254 (150-400) X10^3/uL Neut % (Auto) 63.0 (50-75) % Lymph % (Auto) 29.2 (25-40) % [place] % (Auto) 6.7 (3-14) % Eos % (Auto) 0.7 L (2-4) % Baso % (Auto) 0.4 (0-2) % Neut # (Auto) 4300 (2743-9338) /uL Lymph # (Auto) 2000 (8256-8154) /uL [place] # (Auto) 500 (0-900) /uL Eos # (Auto) 0 (0-450) /uL Baso # (Auto) 0 (0-100) /uL Sodium 138 (137-145) mmol/L Potassium 4.1 (3.4-5.1) mmol/L Chloride 104 (98-107) mmol/L Carbon Dioxide 25 (22-32) mmol/L BUN 24 H (7-17) mg/dL Creatinine 0.88 (0.52-1.04) mg/dL Estimated GFR > 60.0 (>60) mL/min BUN/Creatinine Ratio 27.3 H (6-22) Glucose 103 (80-110) mg/dL Calcium 9.2 (8.4-10.2) mg/dL Total Bilirubin 0.3 (0.2-1.3) mg/dL AST 26 (14-36) IU/L ALT 25 (<35) IU/L Alkaline Phosphatase 63 (38-126) U/L Total Protein 7.8 (6.3-8.2) g/dL Albumin 4.4 (3.5-5.0) g/dL Globulin 3.4 (1.7-4.1) g/dL Albumin/Globulin Ratio 1.3 (1.0-2.8) Blood Type O Positive Antibody Screen Negative [facility] Narrative Medical decision making narrative: This is a 70-year-old female comes in with painless rectal bleeding approximately a week after colonoscopy. Patient noted she did have 2 polyps removed. After review of patient's chart it was noted that she had a 6 mm proximal ascending colon biopsy removed as well as a gigantic semi pedunculated 20 mm polyp in the distal ascending colon, the stalk was injected and was removed in 1 pass, they do note that they were unable to remove it through the colon due to tortuosity and had to cut the polyp in the several ports with electrocautery and removed some of the fragments but not all. Patient's hemoglobin is stable in comparison to prior from 10/17/2020 with a BUN of 24. No other lab changes appreciated. Orthostatics are negative in department. Patient I discussed in CT imaging but she like to defer secondary to radiation exposure. She is having painless rectal bleeding plan for abdominal x-ray to evaluate for free air. This was negative. Discharge Plan Departure Patient Disposition: Home Clinical Impression: Painless rectal bleeding, S/P colonoscopic polypectomy Instructions: DI for Rectal Bleeding Activity Restrictions/Additional Instructions: Follow up with your community engagement coordinator in the next several days. I spoke with Dr. Archer for your community engagement coordinator and they are going to contact you tomorrow for close follow-up. He continued to have bleeding today may take you for repeat colonoscopy I would recommend holding your aspirin for the next week. Your labs do not show any major changes to your hemoglobin today. Please return for fevers greater 100.4 F, new abdominal pain, persistent vomiting, increasing frequency of bright red bleeding with bowel movements or melena, lightheadedness or dizziness, new chest pain or shortness of breath or other new or concerning symptoms. Prescriptions: No Action levothyroxine 175 mcg tablet 175 mcg PO DAILY RF: 0 losartan 100 mg tablet 100 mg PO DAILY RF: 0 aspirin 81 mg Tablet 81 mg PO DAILY RF: 0 calcitriol 0.25 mcg capsule 0.25 mcg PO DAILY RF: 0 Referrals: Hilda Denise PA-C [Primary Care Provider] - Edy Levi MD [Physician] -
--- NOTE | 2020-12-15 16:51 | DI.RAD.S_ITS ---
PROCEDURE: XR ACUTE ABDOMEN SERIES INDICATIONS: colonoscopy last week, rectal bleeding. TECHNIQUE: One view chest and two views of the abdomen were acquired. COMPARISON: [facility], CR, XR CHEST 2V, 10/17/2020, 19:04. [facility], CT, CT ANGIO CHEST PE PROTOCOL, 10/17/2020, 20:38. FINDINGS: Surgical changes and devices: None. Chest: Lungs are clear. Heart size is normal. No pleural effusions. No pneumoperitoneum. Abdomen: Bowel gas pattern is normal. There is a moderate amount of stool seen within the colon. No suspicious calcifications. Visualized solid organ contours appear normal. Bones: No suspicious bony lesions. IMPRESSION: No free air can be seen on these plain films. There is a moderate amount of stool seen within the colon. Please correlate with an underlying history of constipation. If it would be helpful for clinical management decision making, please consider a dedicated CT of the abdomen and pelvis with at least IV contrast. Dictated by: Billy Pierre M.D. on 12/15/2020 at 16:45 Approved by: Billy Pierre M.D. on 12/15/2020 at 16:46
== END 2020-12-15 18:18 | disposition home or self-care (01) ==
PROVIDERS: Emergency Medicine; Emergency Provider Emergency Medicine; PCP Physician Assistant
DX: K62.5 Hemorrhage of anus and rectum (principal); Z98.890 Other specified postprocedural states
CPT/HCPCS: 36415; 74022; 80053; 85025; 86850; 86900; 86901; 99281; 99284

== ENCOUNTER 2021-02-03 22:45 | Emergency (ER) | payer MEDICARE, SELFPAY ==
[2021-02-03 22:59] VITALS: PULSE 78; RESP 27; O2SAT 98
[2021-02-03 23:00] VITALS: BP 153/74; PULSE 79; RESP 28; O2SAT 97
--- NOTE | 2021-02-03 23:03 | DI.RAD.S_ITS ---
PROCEDURE: XR CHEST 1V INDICATIONS: Right-sided chest pain TECHNIQUE: One view of the chest was acquired. COMPARISON: [facility], CT, CT ANGIO CHEST PE PROTOCOL, 10/17/2020, 20:38. [facility], CR, XR CHEST 2V, 10/17/2020, 19:04. FINDINGS: Surgical changes and devices: Lower neck clips are seen. Lungs and pleura: An incomplete inspiratory result is noted, causing a crowded appearance to the lung markings. No focal infiltrates are seen. No pneumothorax or significant pleural effusions are seen. Mediastinum: The cardiac contours are within normal limits. The aorta demonstrates calcification and tortuosity. Bones and chest wall: Age-appropriate bony degenerative changes are seen. No suspicious bony lesions. Overlying soft tissues appear unremarkable. IMPRESSION: Limited portable chest study, without an acute abnormality seen. Low lung volumes noted. Postoperative and degenerative changes are seen. Dictated by: Billy Pierre M.D. on 02/04/2021 at 7:23 Approved by: Billy Pierre M.D. on 02/04/2021 at 7:25
[2021-02-03 23:04] VITALS: BP 163/103; PULSE 95; RESP 15; TEMP 36.6; O2SAT 97; BMI 33.5
[2021-02-03 23:25] LABS: Add Manual Diff / Slide Review NO; Basophils Absolute Auto 100 /uL (0-100); Basophils Percent Auto 0.8 % (0-2); Eosinophils Absolute Auto 100 /uL (0-450); Eosinophils Percent Auto 1.2 % (2-4); Lymphocytes Absolute Auto 2200 /uL (1100-4500); Lymphocytes Percent Auto 33.1 % (25-40); Mean Corpuscular HGB Conc 34.3 % (30-36); Mean Corpuscular Hemoglobin 29.3 PG (26-34); Mean Corpuscular Volume 85.5 fL (80-100); Monocytes Absolute Auto 600 /uL (0-900); Monocytes Percent Auto 8.7 % (3-14); Neutrophils Absolute Auto 3700 /uL (1500-7000); Neutrophils Percent Auto 56.2 % (50-75); Platelet Count 215 X10^3/uL (150-400); Red Blood Cell Count 4.45 X10^6/uL (4.0-5.2); Red Cell Distribution Width 12.9 % (11.6-14.8); White Blood Cell Count 6.7 X10^3/uL (4.5-11.0)
[2021-02-03 23:28] LABS: Alanine Aminotransferase 25 IU/L (<35); Albumin 4.3 g/dL (3.5-5.0); Albumin Globulin Ratio 1.2 (1.0-2.8); Alkaline Phosphatase 80 U/L (38-126); Aspartate Aminotransferase 30 IU/L (14-36); BUN Creatinine Ratio 15.5 (6-22); Bilirubin Total 0.4 mg/dL (0.2-1.3); Blood Urea Nitrogen 13 mg/dL (7-17); Carbon Dioxide 23 mmol/L (22-32); Chloride 106 mmol/L (98-107); Creatine Kinase 323 U/L (30-135); Estimated Glomerular Filt Rate > 60.0 mL/min (>60); Globulin 3.5 g/dL (1.7-4.1); Glucose 137 mg/dL (80-110); Lipase 89 U/L (23-300); Sodium 140 mmol/L (137-145); Total Protein 7.8 g/dL (6.3-8.2)
[2021-02-03 23:30] VITALS: BP 149/83; PULSE 77; RESP 31; O2SAT 98
--- NOTE | 2021-02-03 23:38 | ED_ITS ---
HPI - Chest Pain General Chief Complaint: Chest Pain Stated Complaint: RIGHT SIDE OF CHEST PAIN HARD TIME BREATHING Time Seen by Provider: 02/03/21 22:49 Source: patient Mode of arrival: Ambulatory Limitations: no limitations History of Present Illness HPI narrative: Patient is a 70-year-old female here for evaluation of right- sided chest discomfort. She states she was at her normal state health until after dinner this evening when she had a fairly sudden onset of right-sided chest discomfort. It does hurt her to touch the area. It hurts her to take a deep breath. She has had no skin rash over the area. She took some Tylenol prior to arrival without any improvement. No nausea vomiting. No change in chadd wel habits. Related Data Home Medications Medication Instructions Recorded Confirmed aspirin 81 mg tablet 81 mg PO DAILY 12/07/20 12/07/20 calcitriol 0.25 mcg capsule 0.25 mcg PO DAILY 12/07/20 12/07/20 levothyroxine 175 mcg tablet 175 mcg PO DAILY 12/07/20 12/07/20 losartan 100 mg tablet 100 mg PO DAILY 12/07/20 12/07/20 Allergies Allergy/AdvReac Type Severity Reaction Status Date / Time No Known Drug Allergies Allergy Verified 12/15/20 15:38 Review of Systems Constitutional Constitutional: Reports system reviewed and no additional complaints, except as documented Cardiovascular Cardiovascular: Reports as per HPI Respiratory Respiratory: Reports as per HPI Gastrointestinal Gastrointestinal: Reports system reviewed and no additional complaints, except as documented Genitourinary Genitourinary: Reports system reviewed and no additional complaints, except as documented Integumentary/Breasts Skin/Breast: Reports system reviewed and no additional complaints, except as documented Hematologic/Lymphatic On Anticoagulants: Yes Patient History Medical History Thyroid cancer Uterine cancer Surgical History History of thyroidectomy Status post dilation and curettage (08/08/15) Status post hysterectomy (09/08/15) Status post surgery (08/08/15) Social History household members: none Smoking Status: Never smoker alcohol intake: never Smoking Status: Never smoker alcohol intake frequency: holidays/special occasions only Substance Use Type: does not use Exam Initial Vital Signs Initial Vital Signs: Vital Signs Pulse Rate 78 02/03/21 22:59 Respiratory Rate 27 H 02/03/21 22:59 Pulse Oximetry 98 02/03/21 22:59 Const General: cooperative and healthy appearing [facility] Head: normal to inspection and normocephalic Chest Other: Patient with reproducible tenderness to palpation on the right anterior axillary/mid axillary line at the mid rib area. Resp Effort & Inspection: normal respiratory effort Auscultation: clear to auscultation bilaterally Cardio Rate: regular rate Rhythm: regular rhythm GI Inspection: normal to inspection Palpation: soft and No tender Back/Spine/Pelvis Back: No CVA tenderness Skin General: no rashes or lesions noted Neuro General: patient alert, patient awake and moves all extremities Extrem General: normal to inspection Psych Appearance: grossly normal Course Orders Ordered: ED Orders 02/03/21 22:58 Complete Blood Count AUTO DIFF Stat Comprehensive Metabolic Panel Stat Lipase Stat Troponin & CK Cardiac Panel Stat 02/03/21 23:03 XR chest 1V Stat EKG-12 Lead Stat Discontinued Medications Cyclobenzaprine HCl (Cyclobenzaprine 10 Mg Prepack) 1 bottle MISC SEEINSTR ONE Stop: 02/04/21 00:06 Last Admin: 02/04/21 00:14 Dose: 1 bottle Documented by: RADHA Vital Signs Vital signs: Vital Signs - 8 hr 02/03/21 22:59 02/03/21 23:00 02/03/21 23:04 Temperature 97.9 F Pulse Rate 78 79 95 H Respiratory Rate 27 H 28 H 15 Blood Pressure 153/74 H 163/103 H Pulse Oximetry 98 97 97 02/03/21 23:30 02/04/21 00:00 Temperature Pulse Rate 77 64 Respiratory Rate 31 H 18 Blood Pressure 149/83 H 145/73 H Pulse Oximetry 98 97 MDM - Chest Pain Lab Data Attestation: I reviewed the patient's lab results. Result diagrams: 02/03/21 22:58 02/03/21 22:58 Labs: Lab Results 02/03/21 02/03/21 Range/Units 22:58 22:58 WBC 6.7 (4.5-11.0) X10^3/uL RBC 4.45 (4.0-5.2) X10^6/uL Hgb 13.0 (12.0-16.0) g/dL Hct 38.0 (36-46) % MCV 85.5 (80-100) fL MCH 29.3 (26-34) PG MCHC 34.3 (30-36) % RDW 12.9 (11.6-14.8) % Plt Count 215 (150-400) X10^3/uL Neut % (Auto) 56.2 (50-75) % Lymph % (Auto) 33.1 (25-40) % [place] % (Auto) 8.7 (3-14) % Eos % (Auto) 1.2 L (2-4) % Baso % (Auto) 0.8 (0-2) % Neut # (Auto) 3700 (1962-6668) /uL Lymph # (Auto) 2200 (5562-2236) /uL [place] # (Auto) 600 (0-900) /uL Eos # (Auto) 100 (0-450) /uL Baso # (Auto) 100 (0-100) /uL Sodium 140 (137-145) mmol/L Potassium 4.0 (3.4-5.1) mmol/L Chloride 106 (98-107) mmol/L Carbon Dioxide 23 (22-32) mmol/L BUN 13 (7-17) mg/dL Creatinine 0.84 (0.52-1.04) mg/dL Estimated GFR > 60.0 (>60) mL/min BUN/Creatinine Ratio 15.5 (6-22) Glucose 137 H (80-110) mg/dL Calcium 8.0 L (8.4-10.2) mg/dL Total Bilirubin 0.4 (0.2-1.3) mg/dL AST 30 (14-36) IU/L ALT 25 (<35) IU/L Alkaline Phosphatase 80 (38-126) U/L Total Creatine Kinase 323 H (30-135) U/L CK-MB (CK-2) 2.38 H (<2.37) ng/mL CK-MB (CK-2) Rel Index 0.7 L (1.5-5.0) % Troponin I < 0.012 (0.01-0.034) ng/mL Total Protein 7.8 (6.3-8.2) g/dL Albumin 4.3 (3.5-5.0) g/dL Globulin 3.5 (1.7-4.1) g/dL Albumin/Globulin Ratio 1.2 (1.0-2.8) Lipase 89 (23-300) U/L ECG Data Attestation: I personally reviewed and interpreted this ECG as follows: Interpretation: Sinus rhythm Ventricular rate is 78 Normal axis Normal QRS Normal QTC LVH No ST T wave changes MDM Narrative Medical decision making narrative: Patient has clearly reproducible right-sided chest wall discomfort. I have low suspicion for ACS. Low suspicion for pulmon jarocho embolism. There is no skin rash over the area concerning for zoster. Does appear to be along the lateral ribs on the right. It seems to be intensified at 2 separate rib spaces but then improves as he move either superior inferior or anterior posterior to this area. I suspect that her symptoms are musculoskeletal in origin. I feel that we can hold on further workup for now. She was given return precautions and follow-up instructions. She expressed understanding and agreement. Discharge Plan Departure Patient Disposition: Home Clinical Impression: Right-sided chest wall pain Instructions: DI for Muscle Spasm Activity Restrictions/Additional Instructions: Your workup. The emergency department is very reassuring. I suspect that the symptoms that you are having no related to spasms of the muscles in between your ribs. I do recommend light stretching. You can also take Tylenol/ibuprofen. Return to the emergency department for any new or worsening symptoms. Contact your primary doctor for follow-up. Prescriptions: No Action levothyroxine 175 mcg tablet 175 mcg PO DAILY RF: 0 losartan 100 mg tablet 100 mg PO DAILY RF: 0 aspirin 81 mg Tablet 81 mg PO DAILY RF: 0 calcitriol 0.25 mcg capsule 0.25 mcg PO DAILY RF: 0 Referrals: Hilda Denise PA-C [Primary Care Provider] -
[2021-02-03 23:40] LABS: Troponin I < 0.012 ng/mL (0.01-0.034)
[2021-02-03 23:43] LABS: CKMB % Relative Index 0.7 % (1.5-5.0); Creatine Kinase MB 2.38 ng/mL (<2.37); HEMOLYSIS 35 (0-50)
[2021-02-04] VITALS: BP 145/73; PULSE 64; RESP 18; O2SAT 97
[2021-02-04] MEDS: CYCLOBENZAPRINE 10 MG PREPACK 1 BOTTLE MISC (00:14)
== END 2021-02-04 00:18 | disposition home or self-care (01) ==
PROVIDERS: Emergency Provider Emergency Medicine; PCP Physician Assistant
DX: R07.89 Other chest pain (principal)
CPT/HCPCS: 36415; 71045; 80053; 82550; 82553; 83690; 84484; 85025; 93005; 99283; 99284

== ENCOUNTER → 2021-04-03 07:32 | Outpatient (CLI) | payer MEDICARE, SELFPAY ==
[2021-04-03 08:48] LABS: Add Manual Diff / Slide Review NO; Basophils Absolute Auto 0 /uL (0-100); Basophils Percent Auto 0.5 % (0-2); Eosinophils Absolute Auto 100 /uL (0-450); Eosinophils Percent Auto 1.4 % (2-4); Hematocrit 42.4 % (36-46); Hemoglobin 14.2 g/dL (12.0-16.0); Lymphocytes Absolute Auto 1600 /uL (1100-4500); Lymphocytes Percent Auto 40.5 % (25-40); Mean Corpuscular HGB Conc 33.4 % (30-36); Mean Corpuscular Hemoglobin 28.9 PG (26-34); Mean Corpuscular Volume 86.6 fL (80-100); Monocytes Absolute Auto 300 /uL (0-900); Monocytes Percent Auto 8.7 % (3-14); Neutrophils Absolute Auto 1900 /uL (1500-7000); Neutrophils Percent Auto 48.9 % (50-75); Platelet Count 207 X10^3/uL (150-400); Red Cell Distribution Width 14.3 % (11.6-14.8)
[2021-04-03 08:58] LABS: Alanine Aminotransferase 29 IU/L (<35); Albumin 4.4 g/dL (3.5-5.0); Albumin Globulin Ratio 1.4 (1.0-2.8); Alkaline Phosphatase 61 U/L (38-126); Aspartate Aminotransferase 30 IU/L (14-36); BUN Creatinine Ratio 24.4 (6-22); Bilirubin Total 0.6 mg/dL (0.2-1.3); Blood Urea Nitrogen 19 mg/dL (7-17); Calcium 8.9 mg/dL (8.4-10.2); Carbon Dioxide 28 mmol/L (22-32); Chloride 102 mmol/L (98-107); Estimated Glomerular Filt Rate > 60.0 mL/min (>60); Globulin 3.2 g/dL (1.7-4.1); Glucose 100 mg/dL (80-110); HEMOLYSIS < 15 (0-50); Sodium 140 mmol/L (137-145); Total Protein 7.6 g/dL (6.3-8.2)
[2021-04-03 10:06] LABS: Free T4, Direct Thyroxine 1.57 ng/dL (0.78-2.19)
[2021-04-03 10:20] LABS: Thyroid Stimulating Hormone 0.575 uIU/mL (0.47-4.68)
== END ==
PROVIDERS: PCP Physician Assistant; Referring Provider Internal Medicine Hematology & Oncology; Visit Provider Internal Medicine Hematology & Oncology
DX: C73 Malignant neoplasm of thyroid gland (principal)
CPT/HCPCS: 36415; 80053; 84439; 84443; 85025

== ENCOUNTER → 2021-10-05 07:36 | Outpatient (CLI) | payer MEDICARE, SELFPAY ==
[2021-10-05 08:44] LABS: Add Manual Diff / Slide Review NO; Basophils Absolute Auto 0 /uL (0-100); Basophils Percent Auto 0.6 % (0-2); Eosinophils Absolute Auto 100 /uL (0-450); Eosinophils Percent Auto 1.2 % (2-4); Hemoglobin 14.6 g/dL (12.0-16.0); Lymphocytes Absolute Auto 1700 /uL (1100-4500); Mean Corpuscular HGB Conc 34.9 % (30-36); Mean Corpuscular Hemoglobin 30.8 PG (26-34); Mean Corpuscular Volume 88.4 fL (80-100); Monocytes Absolute Auto 400 /uL (0-900); Monocytes Percent Auto 8.2 % (3-14); Neutrophils Absolute Auto 2800 /uL (1500-7000); Platelet Count 207 X10^3/uL (150-400); Red Blood Cell Count 4.75 X10^6/uL (4.0-5.2); Red Cell Distribution Width 13.6 % (11.6-14.8); White Blood Cell Count 4.9 X10^3/uL (4.5-11.0)
[2021-10-05 09:03] LABS: Alanine Aminotransferase 24 IU/L (<35); Albumin 4.3 g/dL (3.5-5.0); Albumin Globulin Ratio 1.3 (1.0-2.8); Alkaline Phosphatase 65 U/L (38-126); Aspartate Aminotransferase 27 IU/L (14-36); BUN Creatinine Ratio 22.4 (6-22); Bilirubin Total 0.8 mg/dL (0.2-1.3); Blood Urea Nitrogen 22 mg/dL (7-17); Calcium 8.1 mg/dL (8.4-10.2); Carbon Dioxide 26 mmol/L (22-32); Chloride 101 mmol/L (98-107); Estimated Glomerular Filt Rate 56.1 mL/min (>60); Globulin 3.4 g/dL (1.7-4.1); Glucose 111 mg/dL (80-110); HEMOLYSIS < 15 (0-50); Potassium 4.1 mmol/L (3.4-5.1); Sodium 139 mmol/L (137-145); Total Protein 7.7 g/dL (6.3-8.2)
[2021-10-05 09:31] LABS: TSH w/ Reflex to FT4 0.09 uIU/mL (0.47-4.68)
== END ==
PROVIDERS: PCP Physician Assistant; Referring Provider Internal Medicine Hematology & Oncology; Visit Provider Internal Medicine Hematology & Oncology
DX: C73 Malignant neoplasm of thyroid gland (principal)
CPT/HCPCS: 36415; 80053; 84443; 85025

== ENCOUNTER → 2022-01-04 08:00 | Outpatient (CLI) | payer MEDICARE, SELFPAY ==
[2022-01-04 09:05] LABS: Add Manual Diff / Slide Review NO; Basophils Absolute Auto 0 /uL (0-100); Basophils Percent Auto 0.6 % (0-2); Eosinophils Absolute Auto 100 /uL (0-450); Eosinophils Percent Auto 1.1 % (2-4); Hematocrit 41.2 % (36-46); Hemoglobin 13.8 g/dL (12.0-16.0); Lymphocytes Absolute Auto 1400 /uL (1100-4500); Mean Corpuscular HGB Conc 33.6 % (30-36); Mean Corpuscular Hemoglobin 29.2 PG (26-34); Mean Corpuscular Volume 86.9 fL (80-100); Monocytes Absolute Auto 400 /uL (0-900); Monocytes Percent Auto 8.4 % (3-14); Neutrophils Absolute Auto 3200 /uL (1500-7000); Neutrophils Percent Auto 61.9 % (50-75); Platelet Count 219 X10^3/uL (150-400); Red Blood Cell Count 4.73 X10^6/uL (4.0-5.2); Red Cell Distribution Width 13.3 % (11.6-14.8); White Blood Cell Count 5.1 X10^3/uL (4.5-11.0)
[2022-01-04 09:34] LABS: Alanine Aminotransferase 26 IU/L (<35); Albumin 4.4 g/dL (3.5-5.0); Albumin Globulin Ratio 1.4 (1.0-2.8); Alkaline Phosphatase 78 U/L (38-126); Aspartate Aminotransferase 28 IU/L (14-36); BUN Creatinine Ratio 33.3 (6-22); Bilirubin Total 0.6 mg/dL (0.2-1.3); Blood Urea Nitrogen 25 mg/dL (7-17); Carbon Dioxide 23 mmol/L (22-32); Chloride 104 mmol/L (98-107); Estimated Glomerular Filt Rate > 60 mL/min (>60); Globulin 3.2 g/dL (1.7-4.1); Glucose 104 mg/dL (80-110); HEMOLYSIS < 15 (0-50); Potassium 4.3 mmol/L (3.4-5.1); Sodium 141 mmol/L (137-145); Total Protein 7.6 g/dL (6.3-8.2)
[2022-01-04 10:03] LABS: TSH w/ Reflex to FT4 < 0.02 uIU/mL (0.47-4.68)
[2022-01-04 12:14] LABS: Lactate Dehydrogenase 483 U/L (313-618)
[2022-01-04 12:26] LABS: Free T4, Direct Thyroxine 2.33 ng/dL (0.78-2.19)
== END ==
PROVIDERS: PCP Physician Assistant; Referring Provider Internal Medicine Hematology & Oncology; Visit Provider Internal Medicine Hematology & Oncology
DX: C73 Malignant neoplasm of thyroid gland (principal)
CPT/HCPCS: 36415; 80053; 83615; 84439; 84443; 85025

== ENCOUNTER → 2022-05-02 07:26 | Outpatient (CLI) | payer MEDICARE, SELFPAY ==
[2022-05-02 07:57] LABS: Add Manual Diff / Slide Review NO; Basophils Absolute Auto 0 /uL (0-100); Basophils Percent Auto 0.5 % (0-2); Eosinophils Absolute Auto 100 /uL (0-450); Hematocrit 39.2 % (36-46); Hemoglobin 13.4 g/dL (12.0-16.0); Lymphocytes Absolute Auto 1500 /uL (1100-4500); Lymphocytes Percent Auto 33.8 % (25-40); Mean Corpuscular HGB Conc 34.2 % (30-36); Mean Corpuscular Hemoglobin 29.3 PG (26-34); Mean Corpuscular Volume 85.5 fL (80-100); Monocytes Absolute Auto 400 /uL (0-900); Monocytes Percent Auto 9.4 % (3-14); Neutrophils Absolute Auto 2400 /uL (1500-7000); Neutrophils Percent Auto 53.3 % (50-75); Platelet Count 219 X10^3/uL (150-400); Red Blood Cell Count 4.58 X10^6/uL (4.0-5.2); Red Cell Distribution Width 13.5 % (11.6-14.8); White Blood Cell Count 4.5 X10^3/uL (4.5-11.0)
[2022-05-02 08:33] LABS: Alanine Aminotransferase 27 IU/L (<35); Albumin 4.3 g/dL (3.5-5.0); Albumin Globulin Ratio 1.3 (1.0-2.8); Alkaline Phosphatase 77 U/L (38-126); Aspartate Aminotransferase 25 IU/L (14-36); BUN Creatinine Ratio 23.1 (6-22); Bilirubin Total 0.4 mg/dL (0.2-1.3); Blood Urea Nitrogen 18 mg/dL (7-17); Calcium 7.9 mg/dL (8.4-10.2); Carbon Dioxide 26 mmol/L (22-32); Chloride 103 mmol/L (98-107); Cholesterol 192 mg/dL (140-199); Estimated Glomerular Filt Rate > 60 mL/min (>60); Globulin 3.3 g/dL (1.7-4.1); Glucose 100 mg/dL (80-110); HDL Cholesterol 47 mg/dL (40-60); HEMOLYSIS < 15 (0-50); LDL Cholesterol Calculated 124 mg/dL (<100); Sodium 139 mmol/L (137-145); Total Protein 7.6 g/dL (6.3-8.2); Triglycerides 104 mg/dL (35-150)
[2022-05-02 08:48] LABS: Vitamin D 25 Hydroxy (D3) 30.8 ng/mL (30.0-100.0)
[2022-05-02 09:01] LABS: TSH w/ Reflex to FT4 < 0.02 uIU/mL (0.47-4.68)
[2022-05-02 10:44] LABS: Free T4, Direct Thyroxine 1.94 ng/dL (0.78-2.19)
[2022-05-02 11:19] LABS: Microalbumin Urine Random 10.2 mg/dL (0-1.6)
[2022-05-02 11:23] LABS: Creatinine Urine Random 61.2 mg/dL; Microalbumi Creatinin Ratio Ur 166.6 ug/mg CR (<30)
== END ==
PROVIDERS: PCP Family Medicine; Referring Provider Family Medicine; Visit Provider Family Medicine
DX: I10 Essential (primary) hypertension (principal); R79.89 Other specified abnormal findings of blood chemistry; C73 Malignant neoplasm of thyroid gland; E03.9 Hypothyroidism, unspecified; E55.9 Vitamin D deficiency, unspecified; Z79.899 Other long term (current) drug therapy
CPT/HCPCS: 36415; 80053; 80061; 82043; 82306; 82570; 84439; 84443; 85025

== ENCOUNTER → 2022-12-17 07:30 | Outpatient (CLI) | payer MEDICARE, SELFPAY ==
[2022-12-17 10:22] LABS: TSH w/ Reflex to FT4 < 0.02 uIU/mL (0.47-4.68)
[2022-12-17 10:57] LABS: Free T4, Direct Thyroxine 2.27 ng/dL (0.78-2.19)
== END ==
PROVIDERS: PCP Nurse Practitioner Family; Referring Provider Physician Assistant; Visit Provider Physician Assistant
DX: C73 Malignant neoplasm of thyroid gland (principal)
CPT/HCPCS: 36415; 84439; 84443

== ENCOUNTER → 2023-08-17 08:09 | Outpatient (CLI) | payer MEDICARE, SELFPAY ==
--- NOTE | 2023-08-17 | DI.MG.S_ITS ---
BILATERAL DIGITAL SCREENING MAMMOGRAM 3D/2D WITH CAD: 08/17/2023 CLINICAL: Routine screening. Comparison is made to exams dated: 02/02/2019 mammogram, 10/01/2014 mammogram, and 05/06/2012 mammogram - [facility]. There are scattered areas of fibroglandular density in both breasts (category b / 25%-50% glandular tissue). Current study was also evaluated with a Computer Aided Detection (CAD) system. There are benign calcifications in the left breast. There also are benign vascular calcifications in the right breast. No significant masses, calcifications, or other findings are seen in either breast. There has been no significant interval change. IMPRESSION: BENIGN There is no mammographic evidence of malignancy. A 1 year screening mammogram is recommended. Based on the Tyrer Cuzick model (a risk assessment model) the patient's lifetime risk is 3.0% and her 10 year risk is 2.2%. According to the ACR, ACS, and NCCN guidelines, an annual breast MRI exam along with mammogram is recommended if the patient's lifetime risk is 20% or greater. This exam was interpreted at Station ID: [id number]. NOTE: For mammograms, a report in lay terms will be sent to the patient. Approximately 15% of breast malignancies will not be visualized mammographically. In the management of a palpable breast mass, a negative mammogram must not discourage biopsy of a clinically suspicious lesion. Electronically Signed By: Leonarda [email or web address]:08/19/2023 16:39:53 letter sent: Normal Exam ACR BI-RADS Category 2: Benign Finding(s) [id number]
== END ==
LOC: MAMMO 08:09
PROVIDERS: PCP Nurse Practitioner Family; Referring Provider Nurse Practitioner Family; Visit Provider Nurse Practitioner Family
DX: Z12.31 Encounter for screening mammogram for malignant neoplasm of breast (principal); R92.323 Mammographic fibroglandular density, bilateral breasts
CPT/HCPCS: 77063; 77067

== ENCOUNTER → 2024-10-01 13:06 | Outpatient (CLI) | payer MEDICARE, OTHER, SELFPAY ==
--- NOTE | 2024-10-01 13:09 | DI.US.S_ITS ---
PROCEDURE: US PERIPH VENOUS LOW EXTREM RT INDICATIONS: SWELLING RIGHT LEG TECHNIQUE: Real-time imaging, as well as color and pulse Doppler interrogation, were performed of the lower extremity deep veins from the inguinal ligament to the popliteal fossa, with documentation of the visualized calf veins. COMPARISON: None. FINDINGS: The common femoral, femoral, popliteal, and the visualized calf veins are normally compressible, and free of intraluminal thrombus. Color and pulse Doppler demonstrate normal phasic intraluminal flow. There is normal augmentation response to distal compression maneuver. IMPRESSION: No findings of lower extremity deep venous thrombosis. Dictated by: Montrell Chance M.D. on 10/01/2024 at 14:01 Approved by: Montrell Chance M.D. on 10/01/2024 at 14:01
== END ==
PROVIDERS: Referring Provider Nurse Practitioner; Visit Provider Nurse Practitioner
DX: C73 Malignant neoplasm of thyroid gland (principal); M79.89 Other specified soft tissue disorders
CPT/HCPCS: 93971